=== PATIENT | male | born 1940 | race Caucasian/White ===

== ENCOUNTER 2016-07-05 22:44 | Inpatient (IN) | payer MEDICARE, OTHER ==
[~2016-07-05] VITALS: Ht 172.7 cm; Wt 74.3 kg
--- NOTE | ~2016-07-05 | ECHO ---
Transthoracic Echocardiography Report (TTE) Demographics Patient Name VINNY MORALES Date of Study 07/09/2016 Patient Number [id number] Visit Number [id number] Date of 1940 Room Number G6304 Gender Male Number Age 76 year(s) Referring Dianne Lou MD [employer] P[employer] Operator Abhijeet Santos RVT Physician Robert Meadows MD Physician Interpreting Erik Baptiste Harvest Contractor Physician Supervising Ordering Dianne Lou MD, MD/MLP Physician Nurse Stress Network Contract Manager Conclusions Contractility Score Summary Normal Left Ventricular contractility was noted. Summary The estimated left ventricular ejection fraction is 60%. The right atrium is mildly dilated. IVC measures 1.77 cm with >50% inspiratory collapse. Mild mitral regurgitation by color Doppler. There is mild aortic regurgitation by color Doppler. Mild tricuspid regurgitation by color Doppler. There is moderate pulmonary hypertension. The pulmonary pressure (RVSP) is 53 mmHg. Mild pulmonic valve regurgitation by color Doppler. Procedure Type of Study TTE procedure:2D Echocardiogram, M-Mode, Doppler , Color Doppler. Procedure Date Date: 07/09/2016 Start: 11:39 AM Study Location: Inpatient Portable Technical Quality: Adequate visualization Additional Indications:Hypoxia Appropriate Use Criteria: 9 Patient Status: Routine HR: 51 bpm BP: 173/70 mmHg M-Mode/2D Measurements LV Diastolic Dimension: 4.85 cm LV Systolic Dimension: 3.17 cm LV Septum Diastolic: 1.48 cm LV PW Diastolic: 1.23 cm AO Root Dimension: 3 cm Cardiac Output: 2.75 l/min AV Cusp Separation: 2.1 cm RV Diastolic Dimension: 2.26 cm LVOT: 2 cm LVOT VTI: 17.2 cm RV Base: 2.59 cm LV Stroke volume: 54.01 ml RV Length: 6.13 cm TAPSE: 1.61 cm TDI-S': 11.2 cm/s Doppler Measurements AV Peak Velocity: 1.2 m/s MV Peak E-Wave: 1.21 m/s AV Peak Gradient: 5.76 mmHg MV Peak A-Wave: 0.56 m/s AV Mean Gradient: 3 mmHg MV E/A Ratio: 2.15 LVOT Peak Velocity: 0.74 m/s MV P1/2t: 72 msec AV P1/2t: 647 msec TR Gradient:49.56 mmHg PV Peak Velocity: 1.07 m/s Estimated RAP:15 mmHg PV Peak Gradient: 4.58 mmHg Estimated RVSP: 65 mmHg Estimated PASP: 64.56 mmHg E' Septal Velocity: 0.05 m/s A' Septal Velocity: 0.07 m/s E' Lateral Velocity: 0.1 m/s A' Lateral Velocity: 0.07 m/s Findings Right Ventricle Normal right ventricle structure and function. Left Atrium The left atrium is mildly dilated. Right Atrium The right atrium is mildly dilated. IVC measures 1.77 cm with partial inspiratory collapse. Mitral Valve Mild mitral regurgitation by color Doppler. Aortic Valve There is mild aortic regurgitation by color Doppler. Tricuspid Valve Mild tricuspid regurgitation by color Doppler. There is moderate pulmonary hypertension. The pulmonary pressure (RVSP) is 53 mmHg. Pulmonic Valve Mild pulmonic valve regurgitation by color Doppler. Pericardial Effusion No evidence of pericardial effusion. Miscellaneous Visualized portions of the aortic root and ascending aorta appear normal in size. Pleural Effusion No evidence of pleural effusion. Contractility Score LV regional wall motion:(0-Non visualized 1-Normal 2-Hypokinesis 3-Akinesis 4-Dyskinesis 5-Aneurysm) Signature dtt: JUAN ANTONIO TEJEDA dtd: 07/09/16 1139 Physician Self Edit
--- NOTE | ~2016-07-05 | DS ---
PATIENT'S NAME: VINNY MORALES [facility] AGE: 76 Y [address] ROOM: [place] [id number] LOCATION: GPCU ADMIT DATE: 07/06/2016 Discharge Summary DISCHARGE DATE: 07/10/2016 FAMILY PHYSICIAN: Tone Kaur MD ATTENDING PHYSICIAN: Hector Jones V PRIMARY DIAGNOSIS FOR HOSPITALIZATION: Metabolic encephalopathy with acute kidney injury. SECONDARY DIAGNOSES: 1. Chronic kidney disease. 2. Diabetes mellitus type 2. 3. Hypertension. 4. Restless legs syndrome. 5. History of CVA, on anticoagulation with Warfarin. 6. Benign prostatic hypertrophy. RELEVANT LABORATORY TRENDS DURING HOSPITALIZATION: 1. Kidney functions checked in the ER at [place] showed a creatinine of 4.3, and a repeat one done at our hospital during the time of admission was 2.4. This trended down to 2.2 at the time of discharge. He will need a repeat BMP with his primary care physician within the next one week. 2. His INR was noted to be subtherapeutic at the clinic in [place]. However, his INR remained therapeutic throughout the hospital course in our hospital. He was advised to repeat an INR with his primary care physician on 07/12/2016. 3. His A1c was noted to be 10.4. 4. Pro-BNP was 15,936. 5. His cardiac enzymes were negative. RELEVANT IMAGING STUDIES DONE DURING THIS HOSPITALIZATION: 1. Ultrasound KUB, which showed mild echogenicity of the cortex consistent with some chronic changes bilaterally. Possible small renal stone was noted in the lower pole of the left kidney and no hydronephrosis was noted. 2. CAT scan of the brain done at the outside clinic before transfer to our facility showed senescent changes without any acute events. 3. Chest x-ray was done for evaluation of an episode of shortness of breath, which showed possible COPD, without pneumonia or acute CHF along with small bilateral pleural effusions, mainly seen on the lateral view. 4. An echocardiogram was done, which showed normal left ventricular contractility with left ventricular ejection fraction of 60% and moderate PATIENT'S NAME: VINNY MORALES [facility] AGE: 76 Y [address] ROOM: [address] [address] LOCATION: GPCU ADMIT DATE: 07/06/2016 Discharge Summary DISCHARGE DATE: 07/10/2016 FAMILY PHYSICIAN: Tone Kaur MD ATTENDING PHYSICIAN: Hector Jones V pulmonary hypertension with RVSP of 53 along with mild mitral, aortic, and pulmonary valve regurgitation. DISCHARGE MEDICATIONS: 1. Lantus 22 units subcu at bedtime. 2. Ropinirole 1 mg oral at bedtime. 3. Lipitor 40 mg oral daily. 4. Aspirin 325 mg oral daily. 5. Loratadine 10 mg oral daily. 6. Gabapentin 300 mg oral every 12 hours. 7. Warfarin 2.5 mg for 4 days a week (Tuesday, Tuesday, , Tuesday). MEDICATION CHANGES: The following usual home medications were held at the time of discharge. 1. Metformin and glyburide (due to acute kidney injury). 2. Pioglitazone (due to worsening lower extremity edema). 3. The usual home dose of gabapentin was also reduced at the time of discharge as the patient came in with some metabolic encephalopathy. 4. Atenolol was held at the time of discharge due to bradycardia (heart rate is persistently in the 50s) RELEVANT FOLLOWUPS: The patient was advised to follow up with his primary care physician, Dr. Kaur, within the next 1 week. He needed an INR check on 07/12/2016 with numbers to be reported to primary care physician. He also needed to recheck his BMP within the next week and followup with his primary care physician. FOLLOWUP LABORATORIES AND IMAGING REQUIRED: 1. INR on 07/12/2016 and report to primary care physician. 2. Recheck BMP within the next one week and report results to primary care physician. 3. He also needs to repeat his chest x-ray within the next couple of weeks to follow up on his small pleural effusions. SUMMARY OF HOSPITALIZATION: Please refer to the H and P dictated by Dr. Jones for the details of hospital admission. In summary, this is a 76-year- old male patient with a longstanding history of diabetes mellitus, chronic kidney disease, and CVA, on anticoagulation with Warfarin, who was admitted to our hospital with altered mental status along with acute on chronic kidney injury. Initial workup in the ER at [place] showed a creatinine of 4.3 with a blood glucose level of 430. The patient's baseline creatinine is around 1.6, which was last checked in 2015. Repeat labs done in our hospital done at the time of admission was 2.4 and his anion gap was normal. Patient's acute kidney injury was considered to be prerenal, and the patient was given gentle hydration at the time of admission, and the patient's creatinine improved to 2.4 the next day and remained stable throughout the admission course. He also received some IV albumin during hospitalization. On the day of discharge, the patient's creatinine was 2.2. PATIENT'S NAME: VINNY MORALES [facility] AGE: 76 Y [address] ROOM: G6304 [place], [place] [address] LOCATION: GPCU ADMIT DATE: 07/06/2016 Discharge Summary DISCHARGE DATE: 07/10/2016 FAMILY PHYSICIAN: Tone Kaur MD ATTENDING PHYSICIAN: Hector Jones V The patient was noted to have some metabolic encephalopathy at the time of admission. As mentioned before, a CT scan of the head done at the outside facility did not show any acute changes. The patient's mental status improved as his kidney functions improved. The patient was not having any issues with this at the time of discharge. The patient was continued on his anticoagulation with Coumadin during his hospitalization, and before discharge, this was changed back to the original home regimen of 2.5 mg for 4 days a week. The patient's INR remained therapeutic throughout the hospital course. The patient's diabetes mellitus was uncontrolled with an A1c of 10.4. His metformin and glyburide were held because of his acute kidney injury. His pioglitazone was also held because of his worsening lower extremity edema. He was initiated on basal insulin along with correction scale. At the time of discharge, he was continued on Lantus 22 units subcutaneous at bedtime. He received diabetic teaching during the hospitalization. He also received teaching regarding use of insulin pen before his discharge. He was advised to monitor his fasting blood sugars at home and follow up with his primary care physician for further adjustment of his insulin. The patient's blood pressure remained stable throughout the hospital course. However patient was noted to be bradycardic. So we held his beta katerine at the time of discharge. He was advised to follow up with his PCP for reassessment of this. On 07/09/2016, the patient had an episode of shortness of breath. His cardiac enzymes were trended and they were negative. Pro-BNP was found to be elevated at 15,936. A chest x-ray was done, which showed possible COPD with small bilateral pleural effusions without any evidence of pneumonia or acute CHF. His shortness of breath resolved spontaneously, and at the time of discharge, the patient does not have any issues with chest pain or shortness of breath. The patient will need a repeat chest x-ray within the next couple of weeks to follow up on the pleural effusion with his primary care physician.Also please note that an echocardiogram done during the hospitalisation showed normal LVEF with moderate pulmonary hypertension. The entire discharge plan was clearly explained to the patient at the time of discharge, and both he and his verbalized understanding. All their questions were answered to their satisfaction. The patient was hemodynamically stable at the time of discharge. Thank you for letting me take part in the care of this patient. Total time spent in the discharge of this patient is 40 minutes. ARIADNA COLIN MD PATIENT'S NAME: VINNY MORALES [facility] AGE: 76 Y [address] ROOM: [place] [address] [facility] ADMIT DATE: 07/06/2016 Discharge Summary DISCHARGE DATE: 07/10/2016 FAMILY PHYSICIAN: Tone Kaur MD ATTENDING PHYSICIAN: Hector Jones/trevorl /[id number] CC: Tone Kaur MD d: 07/12/16 0228 t: 07/12/16 1315, DISCHARGE SUMMARY
--- NOTE | ~2016-07-05 | HP ---
PATIENT'S NAME: VINNY MORALES [facility] AGE: 76 Y [address] ROOM: [place] [address] LOCATION: GPCU ADMIT DATE: 07/06/2016 History & Physical DISCHARGE DATE: FAMILY PHYSICIAN: Tone Kaur MD ATTENDING PHYSICIAN: JEREMI SANABRIA V DATE OF SERVICE: CHIEF COMPLAINT: Altered mental status. HISTORY OF PRESENT ILLNESS: The patient is a 76-year-old male with past medical history of non-insulin- dependent diabetes, cerebrovascular disease, status post CVA, on anticoagulation, who was brought by to the ER in [place] today. Per , the patient has been a lot more confused lately. Apparently, he has occasional episodes like these, but usually they resolve, but this time around the patient has been quite disoriented. He himself does not report any chest pain, shortness of breath, nausea, vomiting, diarrhea, chest pain, or palpitations, but even he admits to confusion. Of note, the is concerned about the patient's medication compliance. Indeed, in the ER in [place], the patient was found to have a glucose of 430 along with a creatinine of 4.3, considerably above his baseline and a subtherapeutic INR. The remainder of the workup was unremarkable. REVIEW OF SYSTEMS: All systems have been reviewed and are negative aside from pertinent positives mentioned above. 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 CURRENT MEDICATIONS: 1. Uroxatral. 2. Amlodipine. 3. Aspirin. 4. Atenolol. 5. Atorvastatin. 6. Clonidine. 7. Colace. 8. Esomeprazole. 9. Finasteride. 10. Gabapentin. 11. Glyburide/metformin. PATIENT'S NAME: VINNY MORALES [facility] AGE: 76 Y [address] ROOM: [place] [address] LOCATION: GPCU ADMIT DATE: 07/06/2016 History & Physical DISCHARGE DATE: FAMILY PHYSICIAN: Tone Kaur MD ATTENDING PHYSICIAN: JEREMI SANABRIA V 12. Loratadine. 13. Multivitamin. 14. Oxycodone. 15. Pioglitazone. 16. Warfarin. SOCIAL HISTORY: Significant for a distant but no longer pertinent history of tobacco use and no ongoing toxic habits. FAMILY HISTORY: Reviewed and is noncontributory due to known underlying conditions and advanced age. PHYSICAL EXAMINATION: VITAL SIGNS: Temperature 98.3, pulse 78, respirations are 16, blood pressure is 131/68, and saturating 97% on room air. GENERAL: Appears as an elderly frail gentleman, in no acute distress. NEUROLOGIC: Significant for the patient being alert and oriented x2, not being aware of the date. Neurological exam is significant for right-sided ptosis, but no other localizing deficits. ENT: Remarkable for dry mucous membranes. LYMPHATIC: Shows no cervical lymphadenopathy. ENDOCRINE: Shows no thyromegaly. LUNGS: Clear to auscultation. HEART: Rate is regular with no appreciable murmurs, gallops, or rubs. There is no jugular venous distention or lower extremity edema. GI: Reveals abdomen is soft, nontender, nondistended. : Reveals no costovertebral angle tenderness. There is no suprapubic tenderness either. VASCULAR: 2+ pedal pulses. SKIN: Warm and dry. PSYCHIATRIC: Reveals slightly confused gentleman, in very pleasant mood and affect with partially preserved cognition but disoriented. DIAGNOSTIC DATA: Studies from the outside facility are significant for potassium of 5.3, creatinine 4.57, BUN is 45, glucose is 438. INR is 1.29. Hemoglobin 10.8, white count 10.79, platelets are 236. CAT scan of his head shows senescent changes, but no acute event. ASSESSMENT AND PLAN: This is a 76-year-old male, who will be admitted with: 1. Yxghs-tz-vojndoy kidney injury: This is likely a combination of acute kidney injury on chronic kidney disease due to poor glycemic control and PATIENT'S NAME: VINNY MORALES [facility] AGE: 76 Y [address] ROOM: G[address] [place], [place] [address] [facility] AD[facility] DATE: 07/06/2016 History & Physical DISCHARGE DATE: FAMILY PHYSICIAN: Tone Kaur MD ATTENDING PHYSICIAN: JEREMI SANABRIA V osmotic diuresis. We will hold off the patient's nephrotoxics as well as metformin. We will start gently hydrating him. We will get an ultrasound of his kidneys to rule out any obstruction. We will also trend his renal function. If we are unable to achieve improvement, we will consider Nephrology consultation. 2. Hyperkalemia: The patient is supposed to be on Kayexalate, but also does not take that. We will treat him with Kayexalate and monitor him on telemetry. We will recheck his electrolytes in the morning. 3. Insulin-dependent diabetes with hyperglycemia: I will discontinue his metformin, glyburide, and Actos given ongoing acute kidney injury and hyperglycemia. For now, we will treat him with insulin and normalize his Accu-Cheks. Once we have improvement in renal function, we will cautiously restart his oral hypoglycemics. 4. Hypertension: We will continue the patient on his current regimen. 5. Deep vein thrombosis prophylaxis will be pharmacologic. The patient is high risk for deep vein thrombosis. 6. Goals of care: There is a DNR accompanying the patient, and we will respect his wishes. 7. Metabolic encephalopathy: I believe this is a combination of mild uremia as well as reduced Neurontin clearance and his medical renal failure. We will take the dose of Neurontin down to 200 mg 3 times a day from his current dose and observe for effect. Additional management will depend on clinical course. Time dedicated to this patient's encounter is 35 minutes. MD PRACHI JOSEPH/shiv /[id number] D: [id number] T: [id number] HISTORY & PHYSICAL
[2016-07-06] MEDS ORDERED: ACTOS30 MG PO (00:53)
[2016-07-06] MEDS ORDERED: NORVASC10 MG PO (00:53)
[2016-07-06] MEDS ORDERED: ASPIRIN325 MG PO (00:53)
[2016-07-06] MEDS ORDERED: CLARITIN10 MG PO (00:54)
[2016-07-06] MEDS ORDERED: LIPITOR40 MG PO (00:54)
[2016-07-06] MEDS ORDERED: TENORMIN25 MG PO (00:54)
[2016-07-06] MEDS ORDERED: COLACE100 MG PO (00:55)
[2016-07-06] MEDS ORDERED: CATAPRES0.2 MG PO (00:55)
[2016-07-06] MEDS ORDERED: PROSCAR5 MG PO (01:02)
[2016-07-06] MEDS ORDERED: NEURONTIN300 MG PO (01:06)
[2016-07-06] MEDS ORDERED: GLUCOVANCE 5-51 EACH PO (01:06)
[2016-07-06] MEDS ORDERED: NEXIUM40 MG PO (01:07)
[2016-07-06] MEDS ORDERED: MULTI-DAY VITA1 EACH PO (01:07)
[2016-07-06] MEDS ORDERED: UROXATRAL10 MG PO (01:08)
[2016-07-06] MEDS ORDERED: ROXICODONE 5MG (5 MG PO (01:08)
[2016-07-06] MEDS ORDERED: COUMADIN **IA2.5 MG PO (01:09)
[2016-07-06 03:06] LABS: INR - (THERAPEUTIC) 1.2 (0.9-1.1); PROTIME 12.9 SECONDS (9.6-11.1)
[2016-07-06 03:15] LABS: ANION GAP 11.8 (10.0-19.0); MAGNESIUM 2.1 mg/dL (1.3-2.6); PHOSPHORUS 4.1 mg/dL (2.5-4.9); POTASSIUM 4.8 mMol/L (3.7-5.1)
--- NOTE | 2016-07-06 04:20 | NUR ---
Significant Event: Patient alert to self and place, not alert to time and knows that he isn't. Patient reports recent memory changes however patient states she has been noticing for longer period of time. Patient appropriate and cooperative with cares. Up with one assist to bathroom. IV in R AC is positional. Patient uses humor to cover memory issues. Blood sugar on arriva to floor 306, 6 unit novolog subq given per Dr Jones. Patient given 30 grams kayexalate. Patient at bedside and source f most of patient history, patient able to remember some conditions/proceedures but not dates. Follow up: Monitor per POC.
[2016-07-06] MEDS ORDERED: REQUIP1 MG PO (09:33)
[2016-07-06 10:04] LABS: BILIRUBIN URINE NEGATIVE (NEGATIVE); BLOOD URINE 10 /UL (NEGATIVE); GLUCOSE URINE 50 mg/dL (NEGATIVE); KETONE URINE NEGATIVE (NEGATIVE); LEUKOCYTES URINE NEGATIVE /UL (NEGATIVE); NITRITE URINE NEGATIVE (NEGATIVE); PROTEIN URINE 15 mg/dL (NEGATIVE); SPEC GRAVITY URINE 1.015 (1.003-1.035); UROBILINOGEN URINE NORMAL (NORMAL)
[2016-07-06 10:12] LABS: COLOR URINE YELLOW (YELLOW); RBC URINE RARE #/HPF (NEGATIVE); TURBIDITY URINE CLEAR (CLEAR); WBC URINE RARE #/HPF (NEGATIVE)
[2016-07-06 10:13] LABS: BACTERIA URINE NEGATIVE (NEGATIVE); EPITHELIAL URINE NEGATIVE #/HPF (NEGATIVE)
--- NOTE | 2016-07-06 13:10 | NUR ---
Introduced self and role of care management to pt's while he was resting. She states he is doing much better today. They do live in [place] but doctor mostly in [facility]. She stated since 2012 he had a stroke and at times has tia's so was placed on coumadin and that did help but then had skin ca taken off and bled some so took him off for a little bit so she thought it was tia's until she took to ER and his glucose was up along with kidney levels and had increased confusion. She stated he normally does his own meds and does drive but he has not been good lately apparently with his blood sugar meds. HE does not use any dme while at home. She plans on home and will just take over his meds. She does not think hhc will be needed but if swingbed is but doubt they would use [facility]. Will continue to follow and assist as needed.
[2016-07-06 18:20] LABS: ALBUMIN 2.8 gm/dL (3.5-5.0); ANION GAP 12.5 (10.0-19.0); CREATININE 3.3 mg/dL (0.6-1.3); MAGNESIUM 1.7 mg/dL (1.3-2.6); PHOSPHORUS 3.8 mg/dL (2.5-4.9); POTASSIUM 4.5 mMol/L (3.7-5.1)
--- NOTE | 2016-07-06 20:18 | NUR ---
Significant Event: Alert and oriented but can become a little forgetful. Room air. SBP 90's and 120's. HR 50's and 70's. Right antecubital peripheral IV, Normal saline infusing at 100 ml/hr. Up with SBA to restroom. ACHS accuchecks. at bedside. Pleasant and cooperative with cares. Follow up:
[2016-07-07 04:01] LABS: INR - (THERAPEUTIC) 1.4 (0.9-1.1); PROTIME 15.3 SECONDS (9.6-11.1)
[2016-07-07 04:05] LABS: ALBUMIN 2.6 gm/dL (3.5-5.0); ANION GAP 14.2 (10.0-19.0); CALCIUM 8.1 mg/dL (8.5-10.5); CREATININE 2.9 mg/dL (0.6-1.3); MAGNESIUM 1.7 mg/dL (1.3-2.6); PHOSPHORUS 3.5 mg/dL (2.5-4.9); POTASSIUM 4.2 mMol/L (3.7-5.1)
--- NOTE | 2016-07-07 04:55 | NUR ---
Significant Event: A/O x3. Forgetful at times. Afebrile. Denies pain. VSS on RA. SBP 100-110s. HRs 40s. Held Tenormin due to 48 HR and 100/53 BP. 850 uop. MB x1. Cooperative with cares. Follow up: Continue to monitor per plan of cares.
--- NOTE | 2016-07-07 12:33 | NUR ---
Diabetes Consult: Patient with an A1C of 10.4%. The patient's reports that the patient has been having TIA's and on occassion forgets to take his oral glycemics. The patient and his had diabetes education 15 years ago upon being diagnosed. The patient's is knowledgeable regarding diabetes. The patient has not been routinely checking blood sugars, but last he know his A1C was 6.7%. Discussed nutrition and making healthy choices for meals and snacks. The patient has had parotid cancer and reports having a change in taste, that limits what he wants to eat. The patient was given a new glucoemter and instructed to test blood sugars three times daily. Sick day guidelines and hypoglycemia were reviewed. The patient and his were given a diabetes booklet and assessment form to complete. Explained to the patient that he may need to go home on insulin. Patient is receptive to this idea, if his can give the injection. Will continue to follow.
--- NOTE | 2016-07-07 16:04 | NUR ---
Significant Event: A/Ox3. [id number]. P- 40-50s. Afebrile. Room air. R) AC IV infusing NS at 50ml/hr. PT OT consulted. Patient ambulated in hallway with SBA-1A. Denies SOB and pain. Pleasant and cooperative with cares.
[2016-07-07 17:30] LABS: ANION GAP 13.4 (10.0-19.0); CALCIUM 8.1 mg/dL (8.5-10.5); CREATININE 2.6 mg/dL (0.6-1.3); POTASSIUM 4.4 mMol/L (3.7-5.1)
[2016-07-08 04:11] LABS: ALBUMIN 2.7 gm/dL (3.5-5.0); ANION GAP 13.2 (10.0-19.0); CALCIUM 8.3 mg/dL (8.5-10.5); CREATININE 2.4 mg/dL (0.6-1.3); INR - (THERAPEUTIC) 2.3 (0.9-1.1); MAGNESIUM 1.6 mg/dL (1.3-2.6); PHOSPHORUS 3.2 mg/dL (2.5-4.9); POTASSIUM 4.2 mMol/L (3.7-5.1); PROTIME 25.4 SECONDS (9.6-11.1)
--- NOTE | 2016-07-08 04:58 | NUR ---
Significant Event: A/O x3. Forgetful at times. Afebrile. Denies pain. VSS on RA. LS clear/dim. SBP 100-140s. Up standby assist. Cooperative with cares. Follow up: Continue to monitor per plan of care.
--- NOTE | 2016-07-08 10:46 | NUR ---
Diabetes consult: Patient is resting with eyes closed. Diabetes assessment form completed. Scripts placed to the chart for glucometer testing supplies. Nursing staff report the patient's will return this afternoon. Will attempt to revisit to assess additional needs.
--- NOTE | 2016-07-08 19:16 | NUR ---
Significant Event:Patient has not had any pain. Ambilated in hallway with therapy. Started luis Werner'jazmin carb count insulin, and will be starting Levimer tonight. Albumin Q6hrs. Follow up:Possibly home tomorrow?
[2016-07-09 04:57] LABS: INR - (THERAPEUTIC) 2.7 (0.9-1.1); PROTIME 30.3 SECONDS (9.6-11.1)
[2016-07-09 05:02] LABS: ALBUMIN 3.7 gm/dL (3.5-5.0); ANION GAP 13.9 (10.0-19.0); CALCIUM 8.4 mg/dL (8.5-10.5); CREATININE 2.3 mg/dL (0.6-1.3); MAGNESIUM 1.5 mg/dL (1.3-2.6); PHOSPHORUS 2.1 mg/dL (2.5-4.9); POTASSIUM 3.9 mMol/L (3.7-5.1)
--- NOTE | 2016-07-09 06:06 | NUR ---
Significant event: Patient A/O x 3 but forgetful at times. Up to bathroom with SBA. VSS No C/O pain throughout shift. Gave albumin x 2 still need 2 more doses to be given.
[2016-07-09 12:50] LABS: CPK 41 IU/L (35-332)
--- NOTE | 2016-07-09 16:54 | NUR ---
D:Patient on initial rounds was SOB, and sats were 86-87% on room air, and then he got up to bathroom and sats dropped to 82-83%, dyspneic and slow to rebound. Had audible wheezing, and breath sounds were diminished. O2 applied at 2L/NC. Sats did come up to 92% quickly and then to 95%. And resp slowed down. Dr. Senior called and orders given to dc Albumin and give Lasix 20 mg IV. At around 1000, patient up to bathroom and had large incont urine, "couldn't get to the bathroom". Resp status has improved, on room air sats are 95%, O2 remains off. Still has slight wheezing audibly and breath sound remain diminshed. Patient reports just not feeling well. Dr. Dean here, orders given. Patient has slowly throughout day felt better, breathing better. Remains on room air. Did get up this afternoon and ambulate in hallway with therapies.
--- NOTE | 2016-07-09 17:27 | NUR ---
Significant Event:Patient was very dyspneic this am, required some O2, recieved some Lasix. Patient back on room air by 1000, and breathing much better. Pro-BNP was 15,936. Cardiac enz negative. Did have headache this morning, better by noon. Tachy this am in the 90's, and then by midmorning heart rate was back to the 50's. Dr. Dean adjusted meds. Did get Mg++ 2 gm IV and Bumex 1 mg IV on top of the Lasix 20 mg he got earlier this am. Accucheck this am was 132, 1100-149, and at 1700-240. Norvasc started for SBP in the 170-180's. Echo and CXR done. Follow up:Monitor resp status, poss. home tomorrow
[2016-07-09 17:29] LABS: ANION GAP 10.8 (10.0-19.0); CALCIUM 8.8 mg/dL (8.5-10.5); CREATININE 2.3 mg/dL (0.6-1.3); POTASSIUM 3.8 mMol/L (3.7-5.1)
[2016-07-09 19:44] LABS: CPK 42 IU/L (35-332)
[2016-07-10 03:51] LABS: INR - (THERAPEUTIC) 2.8 (0.9-1.1); PROTIME 32.2 SECONDS (9.6-11.1)
[2016-07-10 03:57] LABS: ALBUMIN 3.5 gm/dL (3.5-5.0); ANION GAP 14.8 (10.0-19.0); CALCIUM 8.8 mg/dL (8.5-10.5); CREATININE 2.2 mg/dL (0.6-1.3); MAGNESIUM 1.8 mg/dL (1.3-2.6); PHOSPHORUS 2.1 mg/dL (2.5-4.9); POTASSIUM 3.8 mMol/L (3.7-5.1)
[2016-07-10 04:10] LABS: CPK 34 IU/L (35-332)
--- NOTE | 2016-07-10 05:14 | NUR ---
Significant Event: Patient is alert/oriented x3, forgetful at times. Vital signs stable. Continues on room air. Denies any pain. He did get more sleep compared to previous night. Follow up: Possible D/C to home today.
[2016-07-10] MEDS ORDERED: LANTUS (IN100 UNIT/M SUB-Q (16:14)
--- NOTE | 2016-07-10 17:25 | NUR ---
D: Orders received for patient to be discharged to home. I: Dismissal instructions were prepared and reviewed with the patient and his . The following [facility] instructions were reviewed: Insulin Glargine Solution for injection and Discharge Instructions: Using Injection Pens. I demonstrated the preparation and priming of an insulin pen. Injection of Lantus and post injection instructions were also reviewed with the patient and his . Prescriptions, a Lantus Solostar insulin pen, and needles for the insulin pen were given to the patient. R: The patient and his both verbalized understanding of the instructions at time of teaching with no further questions. P: The patient was taken to the [facility] door via wheelchair where the was waiting with the vehicle.
== END 2016-07-10 17:15 | disposition disaster alternative care site (69) | DRG 682 ==
LOC: GPCU 22:44
PROVIDERS: Internal Medicine; ADMIT Internal Medicine
DX: N17.9 Acute kidney failure, unspecified (principal); G93.41 Metabolic encephalopathy; E11.65 Type 2 diabetes mellitus with hyperglycemia; E11.22 Type 2 diabetes mellitus with diabetic chronic kidney disease; Z86.73 Personal history of transient ischemic attack (TIA), and cerebral infarction without residual deficits; N40.0 Benign prostatic hyperplasia without lower urinary tract symptoms; H02.401 Unspecified ptosis of right eyelid; Z79.01 Long term (current) use of anticoagulants; Z87.891 Personal history of nicotine dependence; E87.5 Hyperkalemia; Z79.84 Long term (current) use of oral hypoglycemic drugs; Z79.82 Long term (current) use of aspirin; I12.9 Hypertensive chronic kidney disease with stage 1 through stage 4 chronic kidney disease, or unspecified chronic kidney disease; N18.3 Chronic kidney disease, stage 3 (moderate); G25.81 Restless legs syndrome; R00.1 Bradycardia, unspecified; I27.2 Other secondary pulmonary hypertension
CPT/HCPCS: A9270; J1650; J1940; J3475; J7030; P9047